=== PATIENT | male | born 1960 | race Two or more races ===

== ENCOUNTER 2020-03-21 10:39 | Outpatient (CLI) | payer OTHER | END 2020-03-21 10:54 | disposition home or self-care (01) | LOC: RAD 10:39 | PROVIDERS: ATTEND Pediatrics | DX: A15.0 Tuberculosis of lung (principal) ==

== ENCOUNTER 2020-04-26 13:00 | Outpatient (CLI) | payer OTHER | END 2020-04-26 15:00 | disposition home or self-care (01) | LOC: PPH VACUNA 13:00 | DX: Z23 Encounter for immunization (principal) ==

== ENCOUNTER → 2020-10-24 | Outpatient (CLI) | payer OTHER | END | disposition home or self-care (01) | LOC: SONOGRAMA 10:16 | PROVIDERS: ATTEND Urology | DX: N40.0 Benign prostatic hyperplasia without lower urinary tract symptoms (principal) ==

== ENCOUNTER 2022-05-06 09:45 | Outpatient (CLI) | payer OTHER | END 2022-05-06 09:55 | disposition home or self-care (01) | LOC: PPH VACUNA 09:45 | PROVIDERS: ATTEND Emergency Medicine Pediatric Emergency Medicine | DX: Z23 Encounter for immunization (principal) ==

== ENCOUNTER 2022-05-15 08:00 | Outpatient (CLI) | payer OTHER | END 2022-05-15 08:05 | disposition home or self-care (01) | LOC: PPH VACUNA 08:00 | PROVIDERS: ATTEND Emergency Medicine Pediatric Emergency Medicine | DX: Z23 Encounter for immunization (principal) ==

== ENCOUNTER → 2022-06-03 09:35 | Outpatient (CLI) | payer OTHER | END | disposition home or self-care (01) | LOC: LAB 09:35 | PROVIDERS: ATTEND Pediatrics | DX: R05.9 Cough, unspecified (principal); Z11.3 Encounter for screening for infections with a predominantly sexual mode of transmission ==

== ENCOUNTER 2022-12-23 06:16 | Day surgery (SDC) | payer OTHER ==
[~2022-12-23 06:16] MED LIST: ALTACE2.5 MG PO; ATORVASTATIN CA20 MG PO; CHILDREN'S ASPI81 MG PO; METOP PO; [UNRECOGNIZED DRUG - OTHER] PO
[2022-12-23] MEDS ORDERED: NEURONTIN300 MG PO (09:21)
[2022-12-23] MEDS ORDERED: PERCOCET 5-3251 EACH PO (09:21)
[2022-12-23] MEDS ORDERED: POLY119PG PO (09:21)
== END 2022-12-23 11:50 | disposition home or self-care (01) ==
LOC: CIR.AMB 06:16
PROVIDERS: ATTEND Surgery
DX: K40.90 Unilateral inguinal hernia, without obstruction or gangrene, not specified as recurrent (principal); Z20.828 Contact with and (suspected) exposure to other viral communicable diseases
CPT/HCPCS: 49650; C1781